=== PATIENT | female | born 1935 | race Caucasian/White ===

== ENCOUNTER → 2017-05-24 | Outpatient (CLI) | payer OTHER ==
[~2017-05-24] MED LIST: ACET-1257 PO; CLOR3.755 PO; ESTR1CRE; GLC/500 PO; GLIP-199 PO; LEVO50TA6 PO; MULT-506 PO; NYSTCRE32 TOP; RXC5 PO; [UNRECOGNIZED DRUG - CODE] PO
[2017-05-24 15:51] LABS: BASO % 0.6 %; BASO ABS # 0.06 K/uL (0-0.2); EOS % 3.1 %; HEMATOCRIT 42.6 % (37-47); HEMOGLOBIN 14.7 g/dL (12.0-16.0); IG# 0.02 K/uL (0.00-0.02); LYMPH ABS # 3.34 K/uL (1.2-3.4); MEAN CELL VOLUME 94.2 fL (80-100); MEAN CORPUSCULAR HEMOGLOBIN 32.5 pg (25-34); MEAN CORPUSCULAR HGB CONC 34.5 g/dl (32-36); MEAN PLATELET VOLUME 11.4 fL (7.4-10.4); MONO % 9.9 %; MONO ABS # 0.95 K/uL (0.11-0.59); NEUT % 51.2 %; NEUT ABS # 4.88 K/uL (1.4-6.5); PLATELET COUNT 234 K/uL (130-400); RED CELL DISTRIBUTION WIDTH SD 48.2 fL (36.4-46.3); WHITE BLOOD COUNT 9.55 K/uL (4.8-10.8)
[2017-05-24 16:28] LABS: BLOOD UREA NITROGEN 15 mg/dl (7-18); CALCIUM 9.6 mg/dl (8.5-10.1); CARBON DIOXIDE 28 mmol/L (21-32); CREATININE 0.85 mg/dl (0.60-1.20); GLUCOSE 80 mg/dl (70-99); POTASSIUM 3.7 mmol/L (3.5-5.1); SODIUM 138 mmol/L (136-145)
== END | disposition home or self-care (01) ==
LOC: C.CPL 14:41
PROVIDERS: ATTEND Orthopaedic Surgery
DX: M75.122 Complete rotator cuff tear or rupture of left shoulder, not specified as traumatic (principal); Z01.812 Encounter for preprocedural laboratory examination; Z01.810 Encounter for preprocedural cardiovascular examination

== ENCOUNTER → 2017-06-25 | Day surgery (SDC) | payer OTHER ==
[2017-05-25 14:13] VITALS: BMI 38.0
[2017-06-04 11:12] VITALS: BMI 38.0
--- NOTE | 2017-06-24 10:24 | HISTORY & PHYSICAL EXAMINATION ---
DATE OF ADMISSION: 06/25/2017 PREOPERATIVE DIAGNOSES: Bursitis with glenohumeral arthritis and loose body formation. HISTORY OF PRESENT ILLNESS: Holly is a pleasant 81-year-old female who has been having a 3-month history of increasing left shoulder pain. She does not recall any injuries or traumas to the shoulder. She does have a history of having a shoulder surgery done in the past. Most of her pain is located over the lateral aspect of her shoulder. She is having a little bit of increased weakness. MRI and clinical examination were diagnostic for mild arthritis with multiple loose bodies and bursitis of her shoulder. There is a questionable small cuff tear. We talked about a shoulder replacement versus arthroscopy. She is not ready for replacement surgery, but she would like some relief. So, we will see if we can get her better with arthroscopy. PAST MEDICAL HISTORY: Significant for diabetes, hypothyroidism. PAST SURGICAL HISTORY: Significant for surgery to her left shoulder, back surgery and 2 knee surgeries. ALLERGIES: IBUPROFEN, but it is questionable. MEDICATIONS: Include Synthroid, metformin, glipizide, 2 baby aspirins a day and nystatin. FAMILY HISTORY: Significant for heart disease. SOCIAL HISTORY: She is . Never drinks. Does little activity. She has 4 kids. REVIEW OF SYSTEMS: She complains mostly of left shoulder pain. All other pertinent review of systems are negative. PHYSICAL EXAMINATION: GENERAL: She is awake, alert, oriented x3 in no apparent distress. She is very pleasant. HEENT: Pupils equal, round, reactive to light. Extraocular movements intact. Oral mucosa is pink, moist. HEART: Regular rate per radial pulse. LUNGS: [place] symmetrically bilaterally with no audible breath sounds. ABDOMEN: Soft, nontender, nondistended. MUSCULOSKELETAL: On physical examination of the shoulder, she has very limited range of motion, mostly secondary to pain. She can actively forward flex only to about 80 degrees. She can abduct 70 degrees. Passively, I can get her slightly further. She has 4/5 muscle strength throughout. Pain over the subacromial space and glenohumeral joint lines. IMAGING DATA: MRI of the shoulder shows some mild to moderate arthritis of the glenohumeral joint. There are multiple loose bodies in the axillary recess. I see no signs of full thickness rotator cuff tears. IMPRESSION: 1. Left shoulder bursitis and loose bodies. 2. Mild arthritis of the left shoulder. PLAN: We will pursue with a left shoulder arthroscopy to include debridement and loose body removal. I will do a small rotator cuff repair if necessary. Postoperatively, she will be placed in an arm sling and discharged to home on oral pain medications.
[~2017-06-25] VITALS: Ht 160 cm; Wt 98.6 kg
[~2017-06-25] MED LIST changes: -ACET-1257 PO; +ACETAMINOPHEN 500 MG TAB PO SCH; +ASPI81TA28 PO; +CEFAZOLIN 2000MG IV PUSH 15 ML IV SCH; +DEXAMETHASONE SOD INJ 4 MG/ML VIAL ONE; -ESTR1CRE; +EpHEDrine SULFATE 50MG/5ML SYR ONE; +EpINEphrine HCL INJ 1 MG/ML 1ML SYRINGE ONE; +FAMOTIDINE 20 MG TAB PO SCH; +FENTANYL CITRATE INJ 50 MCG/1 ML 2 ML VIAL ONE; +GABAPENTIN 300 MG CAP PO SCH; +GLYCOPYRROLATE INJ 0.2 MG/ML VIAL ONE; +HydrALAZINE HCL 20 MG/ML VIAL IV. STA; +LABETALOL HCL IV 5 MG/ML 20ML IV ONE; +LACTATED RINGER'S 1000ML 1,000 ML IV SCH; +LACTATED RINGER'S 1000ML IV SCH; +LIDOCAINE HCL 2% 2 ML VIAL (20MG/ML) ONE; +MIDAZOLAM HCL 1 MG/ML 2ML VIAL ONE; -MULT-506 PO; +NURSING VERBAL MED ORDER ONE; -NYSTCRE32 TOP; +ONDANSETRON INJ 2 MG/ML 2 ML VIAL IV PRN; +ONDANSETRON INJ 2 MG/ML 2 ML VIAL ONE; +OXYC-57 PO; +OXYCODONE/ACETAMINOPHEN 5-325 TAB PO PRN; +PHENYLEPHRINE 100MCG/ML 5ML SYR ONE; +PHENYLEPHRINE HCL INJ 10 MG/ML VIAL ONE; +PROPOFOL IV EMULSION 10 MG/ML 20 ML VIAL IV ONE; +ROPIVACAINE 0.5% 5 MG/ML 30 ML VIAL ONE; -RXC5 PO; +SODIUM CHLORIDE 0.9% 1000ML 1,000 ML IV SCH; +SUCCINYLCHOLINE CHLORIDE 20 MG/ML 10 ML VIAL IV ONE; -[UNRECOGNIZED DRUG - CODE] PO
[2017-06-25 10:30] VITALS: BP 197/93; PULSE 75; TEMP 36.9; O2SAT 93; Ht 160 cm; Wt 98.6 kg
--- NOTE | 2017-06-25 11:04 | History & Physical Bridge Note ---
H&P Re-Evaluation Bridge Note: I have examined the patient, reviewed the History & Physical and in the interval since the performance of the History & Physical I have noted the following changes of clinical significance: No changes noted
--- NOTE | 2017-06-25 13:07 | Discharge Instructions ---
Discharge Instructions Date of Service Jun 25, 2017. Admission Reason for Admission: Left Shoulder Rotator Cuff Tear, Chronic Pain Discharge Discharge Diagnosis / Problem: SAME ABOVE Discharge Goals Goal(s): Decrease discomfort, Improve function Activity Recommendations Activity Limitations: as noted below Lifting Limitations: gradually increase as tolerated Exercise/Sports Limitations: gradually increase as tolerated Shower/Bathe: tomorrow . Instructions / Follow-Up Instructions / Follow-Up MEDICATIONS: * Resume previous medications unless instructed otherwise by your surgeon. * Always take pain medication on a full stomach or with food to avoid upset stomach. * Do not drink alcohol or drive while taking narcotics. * Ibuprofen or Tylenol may be taken if narcotic not needed. SPECIAL CARE INSTRUCTIONS: __ None _X_ Keep extremity elevated and iced x 48 hours; apply ice 20-30 minutes 8-10 times/day. May remove at night. _X_ Sling (WEAR NEEDED FOR COMFORT) __24 hrs/day __ Remove at night __ Shoulder Immobilizer __ 24 hrs/day __ Remove at night _X_ Dressing __ Maintain until seen in office, may shower with plastic over site _X_ Remove dressings in 24-48 hours and then may shower _X_ Cover incisions with band-aids after showering __ Do not remove steri-strips Call physician if chills or temperature rises above 102 degrees or pain unrelieved by prescribed pain medications at . . Current Hospital Diet Patient's current hospital diet: Discharge Diet Recommended Diet: Regular Diet Procedures Procedures Performed: Left Shoulder Arthroscopy with Extensive Debridement Biceps Tenotomy Pending Studies Studies pending at discharge: no Work Instructions Lifting Limitations: none Medical Emergencies . Who to Call and When: Medical Emergencies: If at any time you feel your situation is an emergency, please call 911 immediately. . Non-Emergent Contact Non-Emergency issues call your: Primary Care Provider Call Non-Emergent contact if: you have a fever, temperature is above 101.5 . "Provider Documentation" section prepared by Polo Estrada. .
--- NOTE | 2017-06-25 13:08 | [facility] Post Operative Brief Note ---
Immediate Operative Summary Operative Date Jun 25, 2017. Pre-Operative Diagnosis Left Shoulder: Bursitis and Loose Bodies wit Mild arthritis Post-Operative Diagnosis Left Shoulder: Bursitis and Loose Bodies wit Mild arthritis Procedure(s) Performed Left Shoulder Arthroscopy with Extensive Debridement Biceps Tenotomy Surgeon Dr. [employer] Rep Surgeon(s) EMMA Monahan Estimated Blood Loss 5 ml Findings Consistent with Post-Op Diagnosis Specimens none per surgeon Anesthesia Type General Regional Complication(s) none Disposition Disposition: Recovery Room / PACU
--- NOTE | 2017-06-25 13:48 | Anesthesiology Progress Note ---
Anesthesia Post Op Note Date & Time Jun 25, 2017 at 13:48 Vital Signs Pain Intensity: 0 Vital Signs Past 12 Hours Date Time Temp Pulse Resp B/P (MAP) Pulse Ox O2 Delivery O2 Flow Rate FiO2 06/25/17 13:35 77 17 151/78 90 Oxymask 4 06/25/17 13:25 105 19 115/73 91 Oxymask 10 06/25/17 13:15 108 21 151/93 91 Oxymask 10 06/25/17 13:05 36.0 110 15 156/91 93 Oxymask 10 06/25/17 10:30 36.9 75 18 197/93 (127) 93 Room Air Notes Mental Status: alert / awake / arousable, participated in evaluation Pt Amnestic to Procedure: Yes Nausea / Vomiting: adequately controlled Pain: adequately controlled Airway Patency, RR, SpO2: stable & adequate BP & HR: stable & adequate Hydration State: stable & adequate Anesthetic Complications: no major complications apparent
[2017-06-25 14:12] VITALS: BP 144/60; PULSE 78; TEMP 36.6; O2SAT 94
--- NOTE | 2017-06-25 14:22 | OPERATIVE REPORT ---
DATE OF OPERATION: 06/25/2017 PREOPERATIVE DIAGNOSES: Mild osteoarthritis of the left shoulder with loose bodies and biceps tendinopathy. POSTOPERATIVE DIAGNOSES: Moderate osteoarthritis of the left shoulder with 1 cm x 2 cm loose body and biceps tendinopathy. PROCEDURE: Left shoulder diagnostic arthroscopy with removal of loose body, extensive debridement and biceps tenotomy. SURGEON: Dr. Bolivar Card. RENTAL MANAGER: Polo Estrada PA-C, whose assistance was necessary for positioning the arm and helping with instrumentation. ANESTHESIA: General with a left interscalene nerve block. COMPLICATIONS: None. CONDITION: Stable to PACU. INDICATIONS: Holly is a pleasant 81-year-old female came to my office with complaints of a 4-month history of left shoulder pain. She has a history of a shoulder arthroscopy in the past. X-rays were negative. MRI shows some mild arthritis but showed loose body in the suprapatellar pouch. She was having a lot of subacromial pain as well. She elected to proceed with arthroscopy to see if we can hold off a shoulder replacement. OPERATION AND FINDINGS: On 06/25/2017, she arrived at [facility] for the above procedure. She was seen in the preoperative holding area and the operative extremity was identified and signed. She was given a preoperative antibiotic and a left interscalene nerve block. She was taken back to the operating room, laid on the table in supine position and put under general anesthesia. She was then put into the beachchair position. The left shoulder was prepped and draped in sterile fashion. A time-out was done and the patient and the operative extremity was properly identified. A scope was introduced in the posterior portal. Diagnostic arthroscopy showed grade 3 chondral changes throughout the humeral head. There were grade 4 chondral changes on the posterior aspect of the glenoid. There was significant fraying circumferentially of the labrum. The biceps tendon was slightly frayed. The supraspinatus, the infraspinatus, teres minor and subscapularis were intact. There was a lot of synovitis. An anterior portal was made. A shaver was used to start an extensive debridement of the intraarticular structures. Time was spent removing all inflamed synovium and debriding the labrum back to stable margins. A gentle chondroplasty was done of the humeral head and the glenoid to remove any unstable cartilaginous fragments. The biceps tendon was pulled into the joint and it was very red on the dorsal aspect. There was mild fraying. The biceps tendon was then arthroscopically tenotomized. There was a 1 cm x 2 cm loose body in the axillary pouch. A shaver was used to debride the loose body out of the joint. The scope was then put into the subacromial space. A lateral portal was made. A shaver was used to do a complete subacromial and subdeltoid bursectomy. The previous acromioplasty seemed sufficient and additional acromioplasty was not done. The bursal side of the rotator cuff was examined extensively without evidence of tear. The scope was then placed in the anterior glenohumeral portal. The shaver was placed posteriorly. Continued debridement was done of the glenohumeral joint. Any additional synovitis or damaged tissue was removed. Arthroscopic instruments were removed from the shoulder. Portal sites were closed with 3-0 nylon. She was then placed in a soft dressing and a regular arm sling. She was then extubated, transferred to a [facility] and taken to the postanesthesia care in stable condition. She tolerated the procedure well. I attest to the content of the Intraoperative Record and any orders documented therein. Any exception s are noted below.
[2017-06-25 14:42] VITALS: BP 149/65; PULSE 82; TEMP 36.6; O2SAT 92
== END | disposition home or self-care (01) ==
LOC: C.ACU 09:59
PROVIDERS: ATTEND Orthopaedic Surgery
DX: M19.012 Primary osteoarthritis, left shoulder (principal); M24.012 Loose body in left shoulder; M75.22 Bicipital tendinitis, left shoulder; Z88.6 Allergy status to analgesic agent; I10 Essential (primary) hypertension; E78.5 Hyperlipidemia, unspecified; E66.9 Obesity, unspecified